=== PATIENT | male | born 1980 | race Caucasian/White ===

== ENCOUNTER → 2016-08-28 | Outpatient (CLI) | payer OTHER ==
[~2016-08-28] MED LIST: Erythromycin Ophth O; FLEXERIL10 MG PO; LISINOPRIL40 MG PO; NAPROSYN500 MG PO; NOHOMEMEDS; Proventil,Ventolin H IH
== END | disposition home or self-care (01) ==
LOC: NUC 07:32
DX: R94.6 Abnormal results of thyroid function studies (principal); E03.9 Hypothyroidism, unspecified
CPT/HCPCS: 78014; 78999; A9512; A9531